=== PATIENT | female | born 1965 | race Caucasian/White ===

== ENCOUNTER 2021-11-23 10:05 | Outpatient (CLI) | payer BC | END 2021-11-23 10:06 | disposition home or self-care (01) | LOC: CSHMAMMO 10:05 | PROVIDERS: ATTEND Family Medicine | DX: Z12.31 Encounter for screening mammogram for malignant neoplasm of breast (principal) | CPT/HCPCS: 77063; 77067 ==

== ENCOUNTER 2023-01-08 15:22 | Outpatient (CLI) | payer BC | END 2023-01-08 15:23 | disposition home or self-care (01) | LOC: CSHMAMMO 15:22 | PROVIDERS: ATTEND Family Medicine | DX: Z12.31 Encounter for screening mammogram for malignant neoplasm of breast (principal) | CPT/HCPCS: 77063; 77067 ==